=== PATIENT | male | born 1950 | race Caucasian/White ===

== ENCOUNTER 2016-12-17 13:00 | Outpatient (RCR) | payer MEDICARE, OTHER | END 2017-01-02 09:24 | disposition home or self-care (01) | LOC: PT 13:00 | DX: M22.2X2 Patellofemoral disorders, left knee (principal); M22.2X1 Patellofemoral disorders, right knee ==

== ENCOUNTER 2017-12-14 10:20 | Emergency (ER) | payer MEDICARE, OTHER ==
[~2017-12-14] VITALS: Ht 25.4 cm; Wt 144.1 kg
[2017-12-14] MEDS ORDERED: LISINOPRIL AND1 TA1 PO (10:31)
[2017-12-14] MEDS ORDERED: CELEBREX50 MG PO (10:31)
[2017-12-14] MEDS ORDERED: BUSPIRONE HYDRO10 MG PO (10:32)
[2017-12-14] MEDS ORDERED: THERATRUM COMP1 EAC3 PO (10:32)
[2017-12-14] MEDS ORDERED: ASPIR LOW81 MG PO (10:33)
[2017-12-14] MEDS ORDERED: METAMUCIL POWD174 GM PO (10:33)
[2017-12-14] MEDS ORDERED: LINZESS72 MCG PO (10:33)
[2017-12-14] MEDS ORDERED: ALEVE220 M1 PO (10:34)
[2017-12-14 11:31] VITALS: BP 148/86
== END 2017-12-14 11:30 | disposition home or self-care (01) ==
LOC: ED 10:20
DX: H10.9 Unspecified conjunctivitis (principal); H11.31 Conjunctival hemorrhage, right eye

== ENCOUNTER → 2018-09-23 | Outpatient (CLI) | payer MEDICARE, OTHER ==
[~2018-09-23] MED LIST: ALEVE220 M1 PO; ASPIR LOW81 MG PO; BUSPIRONE HYDRO10 MG PO; CELEBREX50 MG PO; LINZESS72 MCG PO; LISINOPRIL AND1 TA1 PO; METAMUCIL POWD174 GM PO; THERATRUM COMP1 EAC3 PO
== END ==
LOC: RAD 10:15
DX: M65.862 Other synovitis and tenosynovitis, left lower leg (principal); M65.861 Other synovitis and tenosynovitis, right lower leg

== ENCOUNTER → 2019-03-09 | Outpatient (CLI) | payer MEDICARE, OTHER | LOC: PT 13:38 → EDSTATUS 14:00 → PT 14:00 | DX: Z98.890 Other specified postprocedural states (principal) ==

== ENCOUNTER 2019-05-22 08:19 | Emergency (ER) | payer MEDICARE, OTHER ==
[2019-05-22] MEDS ORDERED: ZANAFLEX4 M1 PO (08:36)
[2019-05-22] MEDS ORDERED: FENOFIBRATE48 MG PO (08:50)
[2019-05-22] MEDS ORDERED: KETOROLAC10 MG PO (10:08)
[2019-05-22 10:13] VITALS: BP 116/63
== END 2019-05-22 10:15 | disposition home or self-care (01) ==
LOC: ED 08:19
DX: M54.5 Low back pain (principal); I10 Essential (primary) hypertension; E78.5 Hyperlipidemia, unspecified; Z87.19 Personal history of other diseases of the digestive system; Z98.890 Other specified postprocedural states; Z98.1 Arthrodesis status
CPT/HCPCS: J1885

== ENCOUNTER → 2019-06-10 | Outpatient (CLI) | payer MEDICARE, OTHER ==
[2019-05-22 10:13] VITALS: BP 116/63
[~2019-06-10] MED LIST changes: +FENOFIBRATE48 MG PO; +KETOROLAC10 MG PO; +ZANAFLEX4 M1 PO
== END ==
LOC: RAD 12:00
DX: S76.111A Strain of right quadriceps muscle, fascia and tendon, initial encounter (principal); M25.461 Effusion, right knee

== ENCOUNTER 2019-06-11 13:00 | Outpatient (RCR) | payer MEDICARE, OTHER | END 2019-06-11 13:45 | LOC: PT | DX: M25.561 Pain in right knee (principal); Z98.890 Other specified postprocedural states ==

== ENCOUNTER 2019-09-16 13:00 | Outpatient (RCR) | payer MEDICARE, OTHER | END 2019-09-19 | disposition still patient (30) | LOC: PT | DX: M25.561 Pain in right knee (principal); Z98.890 Other specified postprocedural states ==

== ENCOUNTER 2019-12-16 13:00 | Outpatient (RCR) | payer MEDICARE, OTHER | END 2019-12-19 | disposition still patient (30) | LOC: PT | DX: M25.561 Pain in right knee (principal); Z98.890 Other specified postprocedural states ==

== ENCOUNTER 2020-02-17 13:00 | Outpatient (RCR) | payer MEDICARE, OTHER | END 2020-02-17 13:30 | disposition still patient (30) | LOC: PT 13:00 | DX: M25.561 Pain in right knee (principal); Z98.890 Other specified postprocedural states ==

== ENCOUNTER → 2020-05-29 | Outpatient (RCR) | payer MEDICARE, OTHER | END | disposition home or self-care (01) | LOC: PT | DX: S76.111A Strain of right quadriceps muscle, fascia and tendon, initial encounter (principal) ==

== ENCOUNTER 2020-06-05 13:00 | Outpatient (RCR) | payer MEDICARE, OTHER | END 2020-09-03 | disposition home or self-care (01) | LOC: PT | DX: S76.111A Strain of right quadriceps muscle, fascia and tendon, initial encounter (principal) ==

== ENCOUNTER 2020-09-11 13:00 | Outpatient (RCR) | payer MEDICARE, OTHER | END 2020-12-03 | disposition home or self-care (01) | LOC: PT | DX: S76.111A Strain of right quadriceps muscle, fascia and tendon, initial encounter (principal) ==

== ENCOUNTER 2020-12-04 13:00 | Outpatient (RCR) | payer MEDICARE, OTHER | END 2021-03-04 | disposition home or self-care (01) | LOC: PT | DX: S76.111A Strain of right quadriceps muscle, fascia and tendon, initial encounter (principal) ==

== ENCOUNTER → 2021-03-06 | Outpatient (CLI) | payer MEDICARE, OTHER ==
[2021-03-06 07:48] LABS: POTASSIUM 3.9 mmol/L (3.5-5.1)
[2021-03-06 07:50] LABS: CALCIUM 10.2 mg/dL (8.3-10.5)
== END ==
LOC: LAB 07:11
PROVIDERS: Family Medicine
DX: Z12.5 Encounter for screening for malignant neoplasm of prostate (principal); E78.2 Mixed hyperlipidemia; I10 Essential (primary) hypertension

== ENCOUNTER 2021-09-19 12:52 | Outpatient (RCR) | payer MEDICARE, OTHER | END 2021-09-22 | disposition home or self-care (01) | LOC: PT | DX: R29.898 Other symptoms and signs involving the musculoskeletal system (principal) ==

== ENCOUNTER 2021-10-25 13:53 | Outpatient (RCR) | payer MEDICARE, OTHER | END 2021-11-22 | disposition still patient (30) | LOC: PT | DX: R53.1 Weakness (principal) ==

== ENCOUNTER 2021-11-28 13:00 | Outpatient (RCR) | payer MEDICARE, OTHER | END 2021-12-23 | disposition home or self-care (01) | LOC: PT | DX: R53.1 Weakness (principal) ==

== ENCOUNTER → 2023-06-13 | Outpatient (CLI) | payer MEDICARE, OTHER ==
[2023-06-13 08:56] LABS: BASO # 0.03 K/mm3 (0.02-0.10); EOS # 0.13 K/mm3 (0.04-0.40); EOS % 1.7 % (0.0-4.0); HEMATOCRIT 49.9 % (42.0-52.0); HEMOGLOBIN 15.5 g/dL (13.5-18.0); LYMPH# 2.57 K/mm3 (1.50-4.00); MEAN CELL VOLUME 97 fl (78-100); MEAN CORPUSCULAR HEMOGLOBIN 30 pg (27-31); MEAN CORPUSCULAR HGB CONC 31 g/dL (33-37); MEAN PLATELET VOLUME 10.5 fl (7.4-10.4); MONO # 0.51 K/mm3 (0.20-0.80); NEU # 4.49 K/mm3 (1.40-6.50); PLATELET COUNT 194 K/mm3 (130-400); RED BLOOD COUNT 5.14 M/mm3 (4.20-5.60); RED CELL DISTRIBUTION WIDTH 13.8 % (11.5-14.5); WHITE BLOOD COUNT 7.8 K/mm3 (4.8-10.8)
[2023-06-13 09:04] LABS: ALBUMIN 4.2 g/dL (3.4-4.8)
[2023-06-13 09:09] LABS: TOTAL BILIRUBIN 0.5 mg/dL (0.2-1.2)
== END ==
LOC: LAB 08:39
PROVIDERS: Family Medicine
DX: I10 Essential (primary) hypertension (principal)